=== PATIENT | male | born 1945 | race Caucasian/White ===

== ENCOUNTER 2020-04-19 14:23 | Inpatient (IN) | payer OTHER ==
[~2020-04-19] VITALS: Ht 177.8 cm; Wt 61.7 kg
--- NOTE | 2020-04-19 18:00 | NUR ---
RN NOTE- PT ADMITTED FROM [place] FOR [facility]PRESSION/SI 5150 DTS. PT W +SI LEFT AND PT NOW HOMELESS AND DEPRESSED. PT W NO MEDICAL PROBLEMS, LABS WNL, TOX SCREEN CLEAR, COVID NEG. ON FACE TO FACE ASSESSMENT- PT ALERT ORIENTED TO PERSON PLACE TIME AND PURPOSE. MRSA SWAB ORDERED AND COMPLETED, PHOTOGRAPH TAKEN FOR CHART, SKIN CHECK DONE AND TWO PHOTOS PLACED IN CHART FOR BRUISING POSTERIOR BILAT HANDS. REST OF SKIN CLEAR. PT AMBULATORY, CALM, WITHDRAWN, FLAT DIRECTABLE. STATES, "I FEEL PRETTY LOW". WILL PASS TO NOC SHIFT.
[2020-04-19] MEDS ORDERED: MAG HYDROX/AL HYDROX/SIMETH 30 ML UDC PO PRN (20:00)
[2020-04-19] MEDS ORDERED: MAGNESIUM HYDROXIDE 30 ML UDC PO PRN (20:00)
[2020-04-19] MEDS ORDERED: LORAZEPAM 0.5 MG TABLET PO PRN (20:00)
[2020-04-19] MEDS ORDERED: ACETAMINOPHEN 325 MG TABLET PO PRN (20:00)
[2020-04-19] MEDS ORDERED: TEMAZEPAM 7.5 MG CAPSULE PO PRN (20:00)
[2020-04-19] MEDS ORDERED: BLOOD SUGAR DIAGNOSTIC 1 EACH STRIP IN ONE (20:00)
[2020-04-19 20:19] VITALS: BP 145/77
--- NOTE | 2020-04-20 06:14 | NUR ---
GPS RN NOTES: REFUSED LABS PT REFUSED AM LABS. EXPLAIN RISK AND BENEFITS. PT REFUSED X3. PT STATED, "AFTER BREAKFAST PLEASE. THIS IS ALL SUDDEN." WILL ENDORSE TO DAY SHIFT. CONTINUE TO MONITOR
[2020-04-20 08:00] VITALS: BP 112/68
[2020-04-20] MEDS: SERTRALINE HCL 50 MG TABLET PO SCH (08:28)
--- NOTE | 2020-04-20 09:00 | NUR ---
RN NOTE- PT ALERT ORIENTED TO PERSON PLACE TIME AND PURPOSE NEEDS ATTENDED DENYING SI HI AH VH CONCERNED W DC AND HOUSING MORE THAN ANYTHING. PO INTAKE GOOD MED COMPLIANT CALM
--- NOTE | 2020-04-20 11:47 | NUR ---
Family Contact: SW called the pts , Sivan ([phone]), and the mailbox was full and the SW was unable to leave a message and make contact.
--- NOTE | 2020-04-20 11:47 | NUR ---
Initial Discharge Plan: Pt is currently homeless and does not have any idea of where he will go at the time of discharge. Per pt, he is unsure about where he will go at the time of discharge. LEO will work with the pt and the MD regarding appropriate discharge planning. SW will form a safe and proper plan.
[2020-04-20 11:52] LABS: ALBUMIN 3.7 g/dL (3.4-5.0); BILIRUBIN,TOTAL 0.7 mg/dL (0.2-1.0); CALCIUM, SERUM 9.1 mg/dL (8.5-10.1); CREATININE 1.2 mg/dL (0.6-1.3); POTASSIUM 4.1 mmol/L (3.5-5.1)
[2020-04-20 16:00] VITALS: BP 127/77
--- NOTE | 2020-04-20 18:15 | NUR ---
RN NOTE- DURING SHIFT TODAY, I NOTICED PERIODS OF CONFUSION W PT. HE SEEMED TO FORGET WHERE HE WAS OR WHERE HIS ROOM WAS LOCATED. SITTING IN DAY ROOM STARING OUT WINDOWS. PT WITHDRAWN, INTERNALLY OCCUPIED. WILL PASS ON TO NOC SHIFT AND
[2020-04-20 20:00] VITALS: BP_SYST 99; BP_DIAS 79; BP_DIAS 86
[2020-04-21 08:00] VITALS: BP 154/88
[2020-04-21] MEDS: SERTRALINE HCL 50 MG TABLET PO SCH (08:24)
--- NOTE | 2020-04-21 08:48 | NUR ---
RN-CO: RN CALLED DR ELDER FOR NEURO CONSULT DUE TO MEMORY LOSS.
--- NOTE | 2020-04-21 09:00 | NUR ---
RN NOTE- PT W PERIODS OF CONFUSION, INTERNALLY PREOCCUPIED, WITHDRAWN FORGETFUL. MD NOTIFIED. NEURO CONSULT ORDERED. PO INTAKE POOR. MED COMPLIANT SENTHIL SI [facility]
--- NOTE | 2020-04-21 10:53 | NUR ---
UR Note: SW received a call from Marley, case consultant from [facility], who stated that the pt was authorized until 04/26/20. She stated that a review will be due on 04/26/20 and that the pts case consultant will be Eloina ([phone] ext [phone]).
[2020-04-21 16:00] VITALS: BP 140/81
[2020-04-21 20:07] VITALS: BP 133/70
--- NOTE | 2020-04-21 22:09 | NUR ---
GPS RN NOTES: RECEIVED RESULTS OF CT HEAD WO CONTRAST. WITH IMPRESSION SHOWING NO APPRECIABLE CEREBRAL INFRACTION, HEMORRHAGE, OR HYDROCEPHALUS AND MILD AGE RELATED MICROVASCULAR CHANGE. WILL ENDORSE TO DAY SHIFT TO RELAY RESULTS TO NEURO DOCTOR DR ELDER. PT IN BED ASLEEP RESTING W/ EYES CLOSED. NO S/S OF RESP DISTRESS BREATHING EVEN AND UNLABORED. NO SOB. NO S/S OF PAIN AT THIS TIME. WILL CONTINUE TO MONITOR FOR SAFETY Q15 MIN.
[2020-04-22 08:00] VITALS: BP 131/79
[2020-04-22] MEDS: SERTRALINE HCL 50 MG TABLET PO SCH (08:41)
--- NOTE | 2020-04-22 10:57 | NUR ---
[facility] Contact: SW called the [facility] Care Line ([phone]) stated on the pts return agreement. LEO spoke to Tyrone who stated that they will provide aftercare appointments on the day of discharge and that she is not sure how the pt will be placed. LEO stated that she will follow up on the day of discharge.
[2020-04-22 16:00] VITALS: BP 117/68
[2020-04-22 20:24] VITALS: BP 145/66
[2020-04-23 08:00] VITALS: BP 149/91
[2020-04-23] MEDS: SERTRALINE HCL 50 MG TABLET PO SCH (08:37)
[2020-04-23 16:00] VITALS: BP 134/80
[2020-04-23] MEDS: ENSURE ENLIVE 237 ML LIQUID (VANILLA) PO SCH (17:32)
[2020-04-23 20:00] VITALS: BP 131/75
[2020-04-24 08:00] VITALS: BP 144/93
[2020-04-24] MEDS: CYANOCOBALAMIN 500 MCG TABLET PO SCH (08:20)
[2020-04-24] MEDS: ENSURE ENLIVE 237 ML LIQUID (VANILLA) PO SCH ×3 (08:20→17:20)
[2020-04-24] MEDS: FOLIC ACID 1 MG TABLET PO SCH (08:20)
[2020-04-24] MEDS: SERTRALINE HCL 50 MG TABLET PO SCH (08:20)
[2020-04-24] MEDS: THIAMINE HCL 100 MG TABLET PO SCH (10:01)
[2020-04-24 16:00] VITALS: BP 112/80
--- NOTE | 2020-04-24 18:35 | NUR ---
GPS/RN-NOTES PATIENT C/O CONSTIPATION,MOM 30ML GIVEN PRN ORDER. WILL ENDORSE TO INCOMING NURSE TO CONTINUE MONITOR FOR EFFECTIVENESS AND CONTINUITY OF CARE.
[2020-04-24 20:24] VITALS: BP 127/82
[2020-04-25 08:00] VITALS: BP 153/87
[2020-04-25] MEDS: ENSURE ENLIVE 237 ML LIQUID (VANILLA) PO SCH ×4 (09:00→17:00)
[2020-04-25] MEDS: FOLIC ACID 1 MG TABLET PO SCH (09:48)
[2020-04-25] MEDS: CYANOCOBALAMIN 500 MCG TABLET PO SCH (09:48)
[2020-04-25] MEDS: SERTRALINE HCL 50 MG TABLET PO SCH (09:48)
[2020-04-25] MEDS: THIAMINE HCL 100 MG TABLET PO SCH (09:50)
[2020-04-25 16:00] VITALS: BP 124/87
[2020-04-25 20:00] VITALS: BP 143/48
--- NOTE | 2020-04-26 00:03 | NUR ---
GPS RN NOTES: UPON DOING ROUNDS, PT AWAKE STANDING OUTSIDE HIS ROOM. ENCOURAGE PT TP EXPRESS THOUGHTS AND FEELINGS TO STAFF. PT STATED, "ITS TOO RUNWAY MODEL MY ROOM." DECREASED THE TEMPERATURE OF THE PTS ROOM PER PT REQUEST. OFFERED PT SLEEPING MEDICATION. PT REFUSED AND STATED, "I DON'T HAVE PROBLEMS SLEEPING. I JUST WANT MY ROOM TO BE COOLER THEN I WILL GO BACK." CONTINUE TO MONITOR.
[2020-04-26 08:00] VITALS: BP 112/76
[2020-04-26] MEDS: ENSURE ENLIVE 237 ML LIQUID (VANILLA) PO SCH ×3 (09:00→17:00)
[2020-04-26] MEDS: FOLIC ACID 1 MG TABLET PO SCH ×2 (09:00→09:26)
[2020-04-26] MEDS: THIAMINE HCL 100 MG TABLET PO SCH (09:00)
[2020-04-26] MEDS: CYANOCOBALAMIN 500 MCG TABLET PO SCH (09:26)
--- NOTE | 2020-04-26 11:45 | NUR ---
UR Note: SW called Eloina ([phone]), pts [employer] rn field case manager, and left a clinical on her voicemail asking for additional authorization for the pt.
--- NOTE | 2020-04-26 12:16 | NUR ---
UR Note: Eloina ([phone]), pts [employer] lining caser, called the SW and stated that she will cover the pt for today (04/26/20) but states that there is nothing acute for her to continue authorizing the pt. Addendum: 04/26/20 at 1219 by LEO HUGHES UR Note: Eloina ([phone]), pts [employer] lining caser, called the SW and stated that the pt is covered 04/26/20 and 04/27/20 since she added an additional day and the pt was already covered on 04/26/20.
--- NOTE | 2020-04-26 12:23 | NUR ---
[facility] Transport: LEO called [facility] ([phone]) and informed them that the pt will be discharged and will need to be picked up and taken to a half-way. LEO was informed that once they check the schedule they will call the LEO back to confirm. Addendum: 04/26/20 at 1236 by LEO HUGHES LEO spoke to
[2020-04-26 16:00] VITALS: BP 138/71
[2020-04-26 19:53] VITALS: BP 127/73
[2020-04-26] MEDS ORDERED: QUETIAPINE FUMARATE 100 MG TABLET PO SCH (22:00)
[2020-04-27 08:00] VITALS: BP 114/77
[2020-04-27] MEDS: FOLIC ACID 1 MG TABLET PO SCH (08:43)
[2020-04-27] MEDS: ENSURE ENLIVE 237 ML LIQUID (VANILLA) PO SCH ×2 (08:43→12:03)
[2020-04-27] MEDS: CYANOCOBALAMIN 500 MCG TABLET PO SCH (08:44)
[2020-04-27] MEDS: THIAMINE HCL 100 MG TABLET PO SCH (08:44)
[2020-04-27] MEDS ORDERED: SERTRALINE HCL 50 MG TABLET PO SCH (09:00)
--- NOTE | 2020-04-27 09:59 | NUR ---
County Contact: SW called the [facility] Managed Care Line ([phone]) and was informed that because the pt has a managed care insurance company that the insurance company will have to provide the aftercare appointments.
--- NOTE | 2020-04-27 09:59 | NUR ---
[facility] Transport: LEO called [facility] ([phone]) and spoke to Nelida who stated that the pt will be picked up around 1:30PM.
--- NOTE | 2020-04-27 10:00 | NUR ---
[facility] Transport: SW called [facility] ([phone]) and spoke to Nelida who stated that the pt will be discharged to a intermediate in [place] and provided the SW with the following address: [address] [place] [address], [place] [address].
--- NOTE | 2020-04-27 11:19 | NUR ---
RN-CO: Patient is calm and cooperative to care. He was seen and examined by Dr Cardona via telemedicine and ordered to discontinue hold and discharge the patient today. Dr Cruz medically cleared the patient for discharge. Patient denied auditory and visual hallucinations. He denied suicidal and homicidal ideations. Valuables will be given back to the patient. Patient was instructed to make a follow up appointment with the post production assistant and psychiatrist within a week and as needed. Prescription and discharge instructions was explained and he verbalized understanding.
--- NOTE | 2020-04-27 13:00 | NUR ---
RN-CO: PATIENT WAS PICKED UP BY [facility]SP[facility]. ESCORTED BY HIS PRIMARY RN, SHAKA MARTE AND MICHAEL GUILLEN. HE WAS INSTRUCTED ABOUT HIS PRESCRIPTION AND HIS FOLLOW UP APPOINTMENT.VALUABLES AND BELONGINGS WAS GIVENA BACK TO HIM.
--- NOTE | 2020-04-27 13:29 | NUR ---
Discharge Note: Pt was discharged to a homeless senior living located at [address] [place] [id number]; ([phone]). Pt was picked up by [facility] transportation around 1:30PM. Upon discharge, the pt appeared to be in a euthymic mood and presented with a distressed and flat affect. Pt denied both suicidal and homicidal ideation as well as auditory and visual hallucinations. Pt appeared to be alert and oriented x4 (time, place, self, and situation). Pt appeared to be ambulatory with a steady gait. Pt signed the homeless waiver and was given resources including shelters, food solorio, showers, hot meals, mental health clinics, health clinics and substance abuse referrals. Pt will be under the care of psychiatrist, Dr. Espinoza, located at [address]; [place] [facility] [address]; . Pt has an appointment on 05/14/20 at 2pm. Pt will be under the care of granulating blender, Dr. Degroot, located at [address] [facility]; [place] [address]; . Pt has an appointment on 05/21/20 at 10am.
--- NOTE | 2020-04-28 10:48 | NUR ---
[facility] Transport: LEO called [employer] ([phone]), miller supervisor, and spoke to Nelida fox who stated that [facility] will arrive to work around 2pm. LEO stated that she will call back at that time.
== END 2020-04-27 12:50 | disposition home or self-care (01) | DRG 885 ==
LOC: GPS 17:18
PROVIDERS: ADMIT Psychiatry & Neurology Psychiatry; ATTEND Registered Nurse
DX: F33.2 Major depressive disorder, recurrent severe without psychotic features (principal); R45.851 Suicidal ideations; G93.40 Encephalopathy, unspecified; E87.1 Hypo-osmolality and hyponatremia; Z59.0 Homelessness; F41.9 Anxiety disorder, unspecified; F29 Unspecified psychosis not due to a substance or known physiological condition; E78.5 Hyperlipidemia, unspecified
CPT/HCPCS: 36415; 70450-TC; 80053-TC; 80061-TC; 82962-TC; 84443-TC; 87081-TC